=== PATIENT | female | born 1960 | race Caucasian/White ===

== ENCOUNTER 2018-06-23 05:55 | Day surgery (SDC) | payer OTHER ==
[~2018-06-23] VITALS: Ht 162.6 cm; Wt 72.7 kg
[~2018-06-23 05:55] MED LIST: CHOL50004 PO; CeFAZolin 2 GM/DEXTROSE 50 ML IV ONE; RINGERS SOLUTION,LACTATED 1,000 ML IV ONE
[2018-06-23] MEDS ORDERED: PROPOFOL 1% 20 ML VIAL IVP ONE (05:56)
[2018-06-23] MEDS ORDERED: FentaNYL CITRATE-PF 100 MCG/2 ML VIAL IVP ONE (05:56)
[2018-06-23] MEDS ORDERED: SUCCINYLCHOLINE CHLORIDE 20 MG/ML 10 ML VIAL IVP ONE (05:56)
[2018-06-23] MEDS ORDERED: LIDOCAINE/PF 2% 5 ML VIAL IM ONE (05:56)
[2018-06-23] MEDS ORDERED: EPHEDrine SULFATE 50 MG/ML VIAL IM ONE (05:56)
[2018-06-23] MEDS ORDERED: MIDAZOLAM HCL 2 MG/2 ML VIAL IVP ONE (05:56)
[2018-06-23] MEDS ORDERED: ONDANSETRON HCL 4 MG/2 ML VIAL IVP ONE (05:56)
[2018-06-23] MEDS ORDERED: CeFAZolin 2 GM/DEXTROSE 50 ML IV ONE (06:00)
[2018-06-23] MEDS ORDERED: RINGERS SOLUTION,LACTATED 1,000 ML IV ONE (06:00)
[2018-06-23] MEDS ORDERED: VANCOMYCIN HCL 1 GM/VIAL ONE (06:34)
[2018-06-23] MEDS ORDERED: BUPIVACAINE HCL/PF 0.25% 30 ML VIAL ONE (06:34)
[2018-06-23] MEDS ORDERED: MICROFIBRILLAR COLLAGEN 1 GM PACKAGE TP ONE (06:36)
[2018-06-23 06:52] LABS: EOSINOPHILS % (AUTO) 2.4 % (1.0-6.0); HEMATOCRIT 45.4 % (36-46); HEMOGLOBIN 15.6 g/dL (12.0-16.0); LYMPHOCYTES # (AUTO) 2.2 K/uL (1.0-4.8); LYMPHOCYTES % (AUTO) 30.7 % (22.0-44.0); MEAN CORPUSCULAR HEMOGLOBIN 31.3 pg (26.0-34.0); MEAN CORPUSCULAR HGB CONC 34.4 G/dL (31.0-37.0); MEAN CORPUSCULAR VOLUME 91 fL (80-100); MONOCYTES # (AUTO) 0.7 K/uL (0.1-1.0); MONOCYTES % (AUTO) 9.6 % (2.0-9.0); NEUTROPHILS # (AUTO) 4.1 K/uL (1.8-7.7); NEUTROPHILS % (AUTO) 56.3 % (40.0-70.0); PLATELET COUNT (AUTO) 264 K/uL (150-450); RED CELL DISTRIBUTION WIDTH 12.3 % (11.5-14.5)
[2018-06-23] MEDS ORDERED: MUPIROCIN CALCIUM 2% 22 GM OINTMENT ONE (07:26)
[2018-06-23] MEDS ORDERED: METOCLOPRAMIDE HCL 5 MG/ML 2 ML VIAL IVP PRN (07:45)
[2018-06-23] MEDS ORDERED: HYDROmorphone 2 MG/ML SYRINGE IVP PRN ×2 (07:45)
[2018-06-23] MEDS ORDERED: ONDANSETRON HCL 4 MG/2 ML VIAL IVP PRN (07:45)
[2018-06-23] MEDS ORDERED: ACETAMINOPHEN 1000 MG/ISO-OSM 100 ML IV ONE ×2 (07:45→08:45)
[2018-06-23] MEDS ORDERED: MIDAZOLAM HCL 2 MG/2 ML VIAL IVP PRN (07:45)
[2018-06-23] MEDS ORDERED: HYDROmorphone 2 MG/ML SYRINGE ONE (08:32)
[2018-06-23] MEDS: HYDROmorphone 2 MG/ML SYRINGE IVP PRN ×3 (08:33→09:02)
[2018-06-23] MEDS ORDERED: MEPERIDINE-PF 25 MG/ML VIAL ONE (09:14)
[2018-06-23] MEDS ORDERED: MEPERIDINE-PF 25 MG/ML VIAL IVP STA (09:15)
== END 2018-06-23 12:15 | disposition home or self-care (01) ==
LOC: SURGERY 05:55
PROVIDERS: ATTEND Orthopaedic Surgery
DX: S92.352K Displaced fracture of fifth metatarsal bone, left foot, subsequent encounter for fracture with nonunion (principal); X58.XXXD Exposure to other specified factors, subsequent encounter; Z98.890 Other specified postprocedural states
CPT/HCPCS: 20610; 28208; 28322; 36415; 76000; 77071; 85025; 93005; C1713; J0131; J0330; J0690; J1170; J2175; J2250; J2405; J2704; J3010; J3370; J3490 ×3; J7120